=== PATIENT | male | born 1990 | race African-American/Black ===

== ENCOUNTER 2019-09-09 14:15 | Emergency (ER) | payer OTHER ==
[~2019-09-09] VITALS: Ht 172.7 cm; Wt 61.2 kg
[2019-09-09 15:19] LABS: Basophils # (auto) 0 uL; Basophils % (auto) 0.3 % (0.0-2.0); Eosinophils # (auto) 0 uL; Eosinophils % (auto) 0.3 % (0.0-7.0); Hematocrit 44.5 % (41.0-53.0); Hemoglobin 14.2 g/dL (13.5-17.5); Lymphocytes # (auto) 1.6 uL; Lymphocytes % (auto) 26.5 % (10.0-50.0); Mean Corpuscular Hemoglobin 28.6 pg (28.0-32.0); Mean Corpuscular Hgb Conc. 31.8 g/dL (32.0-36.0); Mean Corpuscular Volume 89.7 fL (80.0-100.0); Monocytes # (auto) 0.6 uL; Monocytes % (auto) 9.3 % (0.0-12.0); Neutrophils # (auto) 3.8 uL; Neutrophils % (auto) 63.6 % (37.0-80.0); Nucleated Red Blood Cells % 0.1 %; Platelet Count (auto) 188 10^3/uL (140-450); Red Blood Cells 4.96 10^6/uL (4.5-5.90); Red Cell Distribution Width 13.7 % (11.8-14.3); White Blood Cell 6.1 10^3/uL (4.4-10.8)
[2019-09-09 15:37] LABS: Salicylate < 1.7 mg/dL (2.8-20.0)
[2019-09-09 15:38] LABS: Acetaminophen < 2.0 ug/mL (10-30)
[2019-09-09 15:39] LABS: Albumin 3.9 g/dL (3.4-5.0); Anion Gap 1 (5-15); BUN/Creatinine Ratio 9.6; Blood Alcohol < 3.0 mg/dL (0-5); Blood Urea Nitrogen 9 mg/dL (7-18); Calcium 8.9 mg/dL (8.5-10.1); Carbon Dioxide 31 mmol/L (21-32); Chloride 108 mmol/L (98-107); GFR African American 124 mL/min; GFR Non-African American 102 mL/min; Glucose 74 mg/dL (74-106); Potassium 4.4 mmol/L (3.5-5.1); Sodium 140 mmol/L (136-145)
[2019-09-09 15:41] LABS: Alanine Aminotransferase 24 U/L (16-61); Alkaline Phosphatase 62 U/L (45-117); Aspartate Aminotransferase 19 U/L (15-37); Bilirubin, Total 0.8 mg/dL (0.2-1.0); Total Protein 7.5 g/dL (6.4-8.2)
[2019-09-09 20:00] VITALS: BP 120/73
== END 2019-09-09 20:48 | disposition home or self-care (01) ==
LOC: EDBD 14:15 → EEVIPCON 14:20 → ER 14:20
DX: T50.902A Poisoning by unspecified drugs, medicaments and biological substances, intentional self-harm, initial encounter (principal); R10.13 Epigastric pain; F41.9 Anxiety disorder, unspecified; F32.9 Major depressive disorder, single episode, unspecified; Y92.89 Other specified places as the place of occurrence of the external cause
CPT/HCPCS: 36415; 80053; 80320; 80329; 85025; 93005